=== PATIENT | female | born 1970 | race Two or more races ===

== ENCOUNTER 2017-07-19 09:15 | Inpatient (IN) | payer OTHER ==
[~2017-07-19] VITALS: Ht 170.2 cm; Wt 106.1 kg
[2017-07-19] MEDS ORDERED: ZIAC 2.5-6.251 EACH PO (12:51)
[2017-07-19] MEDS ORDERED: VASOTEC5 MG PO (12:52)
[2017-07-19] MEDS ORDERED: NORVASC5 MG PO (14:09)
[2017-07-28] MEDS ORDERED: OXYC1TAB9 PO (07:21)
[2017-07-28] MEDS ORDERED: CIPRO500 MG PO (07:21)
[2017-07-28] MEDS ORDERED: LEVSIN/SL0.125 MG PO (07:21)
== END 2017-07-28 11:04 | disposition home or self-care (01) | DRG 743 ==
LOC: ADM 09:15 → EDSTATUS 09:15 → O/R 07-26 06:30 → OB/GYN 07-26 06:30 → RECOVERY 07-26 08:45 → OB/GYN 07-26 11:20
PROVIDERS: Obstetrics & Gynecology Gynecology
PROC: 0UT70ZZ Resection of Bilateral Fallopian Tubes, Open Approach (ICD-10-PCS; 2017-07-26)
PROC: 0US20ZZ Reposition Bilateral Ovaries, Open Approach (ICD-10-PCS; 2017-07-26)
PROC: 0UT90ZZ Resection of Uterus, Open Approach (ICD-10-PCS; principal; 2017-07-26 08:45)
DX: D25.1 Intramural leiomyoma of uterus (principal); N72 Inflammatory disease of cervix uteri; N92.0 Excessive and frequent menstruation with regular cycle; I11.9 Hypertensive heart disease without heart failure; E66.8 Other obesity